=== PATIENT | female | born 1960 | race Caucasian/White ===

== ENCOUNTER 2016-12-17 14:22 | Emergency (ER) | payer BC ==
[~2016-12-17] VITALS: Ht 162.6 cm; Wt 98.7 kg
[2016-12-17 15:08] LABS: HEMATOCRIT 34.9 % (36.0-46.0); MCH 27.1 PG (29.0-34.0); MCHC 33.5 G/DL (30.0-36.0); MCV 80.8 FL (83-99); MEAN PLAT.VOLUME 11.5 uM^3 (9.5-12.4); PLATELET COUNT 193 K/uL (156-360); RBC DIS.WIDTH-CV 14.4 % (11.8-14.6); RBC DIS.WIDTH-SD 41.9 % (39-53); RED BLOOD COUNT 4.32 M/uL (3.80-5.20); WHITE BLOOD COUNT 7.3 K/uL (4.1-10.2)
[2016-12-17 15:22] LABS: CHLORIDE 107 mEq/L (99-109); POTASSIUM 4.2 mEq/L (3.7-5.4); SODIUM 141 mEq/L (136-147)
[2016-12-17 15:24] LABS: GLUCOSE 162 mg/dL (70-99)
[2016-12-17 15:25] LABS: ANION GAP 10 MEQ/L (2-14)
[2016-12-17 15:26] LABS: TOTAL BILIRUBIN 0.7 mg/dL (0.0-1.0)
[2016-12-17 15:28] LABS: ALKALINE PHOSPHATASE 63 IU/L (3-129); GFR ESTIMATE (CALCULATED) 41 mL/min/
[2016-12-17 15:29] LABS: UREA NITROGEN (BUN) 31 mg/dL (9-23)
[2016-12-17 15:37] LABS: QUANTITATIVE HCG 6.1 MIU/ML
[2016-12-17] MEDS ORDERED: DORZOLAMIDE-TIM10 ML BOTH EYES (16:39)
[2016-12-17] MEDS ORDERED: TACROLIMUS ANHYD1 MG PO (16:40)
[2016-12-17] MEDS ORDERED: LATANOPROST2.5 ML BOTH EYES (16:40)
[2016-12-17] MEDS ORDERED: GABAPENTIN300 MG PO (16:41)
[2016-12-17] MEDS ORDERED: PANTOPRAZOLE SO40 MG PO (16:41)
[2016-12-17] MEDS ORDERED: LIDOCAINE700 MG TD (16:42)
[2016-12-17] MEDS ORDERED: ATENOLOL100 MG PO (16:42)
[2016-12-17] MEDS ORDERED: TRESIBA FL200 UNIT/1 SC (16:42)
[2016-12-17] MEDS ORDERED: HYDROCHLOROTHIA25 MG PO (16:43)
[2016-12-17] MEDS ORDERED: NOVOLOG PE100 UNITS/ SC (16:43)
[2016-12-17] MEDS ORDERED: VITAMIN D31000 UNI2 PO (16:45)
[2016-12-17] MEDS ORDERED: VITAMIN B12 PO (16:45)
[2016-12-17] MEDS ORDERED: MAGNESIUM250 MG PO (16:45)
[2016-12-17 16:56] LABS: LIPASE 98 U/L (1.0-51.0)
[2016-12-17 17:14] LABS: ADD MIUA? NO; BILIRUBIN NEGATIVE; BLOOD NEGATIVE; COLOR STRAW ((YELLOW)); GLUCOSE (STRIP) 50; KETONES NEGATIVE; LEUKOCYTES NEGATIVE; NITRITE NEGATIVE; PROTEIN (STRIP) NEGATIVE; SPECIFIC GRAVITY 1.009 (1.000-1.030); UCUL ADDED? NO; UROBILINOGEN 0.2 MG/DL (0.2-1.0)
[2016-12-17] MEDS ORDERED: PERCOCET 5/31 TABLET PO (19:19)
[2016-12-17 19:33] VITALS: BP 144/65
== END 2016-12-17 19:38 | disposition home or self-care (01) ==
LOC: EME 14:22
DX: R10.9 Unspecified abdominal pain (principal); Z94.4 Liver transplant status; E11.9 Type 2 diabetes mellitus without complications; I10 Essential (primary) hypertension
CPT/HCPCS: 74176; 80053; 81003; 83690; 84702; 85027; 99281; 99285; J7030